=== PATIENT | male | born 1965 | race African-American/Black ===

== ENCOUNTER 2020-12-28 13:41 | Inpatient (IN) | payer BC ==
[~2020-12-28] VITALS: Ht 182.9 cm; Wt 106.1 kg
[2020-12-28] MEDS ORDERED: PIPERACILLIN/TAZ 3.375G PREMIX 50 ML IV ONE (14:30)
[2020-12-28] MEDS ORDERED: ACETAMINOPHEN 325MG TABLET PO ONE (14:30)
[2020-12-28] MEDS ORDERED: VANCOMYCIN 1 G PREMIX 200 ML IV ONE (14:30)
[2020-12-28] MEDS ORDERED: SODIUM CHLORIDE 0.9% 500 ML IV ONE (14:30)
[2020-12-28 14:50] LABS: HEMATOCRIT. 37.1 % (42.0-52.0); HEMOGLOBIN. 12.8 g/dL (14.0-18.0); MEAN CORPUSCULAR HEMOGLOBIN 28.6 pg (28.0-32.0); MEAN CORPUSCULAR VOLUME 83.1 fL (80.0-94.0); MEAN PLATELET VOLUME 10.8 fl (7.4-10.4); RED BLOOD CELL COUNT 4.47 mill/uL (4.7-6.1); RED CELL DISTRIBUTION WIDTH 15.4 % (11.6-14.6)
[2020-12-28 14:57] LABS: CHLORIDE 99 mEq/L (98-107)
[2020-12-28] MEDS ORDERED: IOHEXOL-350 100 ML BOTTLE ONE (14:58)
[2020-12-28 15:02] LABS: ETHANOL BLOOD < 10 mg/dL; INR 1.2; PROTHROMBIN TIME 12.5 sec (9.6-11.0)
[2020-12-28 15:05] LABS: LDL CHOLESTEROL 61 mg/dL (5-100)
[2020-12-28 15:07] LABS: FIBRINOGEN > 900 mg/dL (200-400)
[2020-12-28 16:26] LABS: PLATELET ESTIMATE MARKEDLY DECREASED
[2020-12-28 16:30] LABS: PLATELET 23 x1000/uL (130-400)
[2020-12-28] MEDS: SODIUM CHLORIDE 0.9% 1,000 ML IV SCH (16:30)
[2020-12-28] MEDS ORDERED: ACETAMINOPHEN 325MG TABLET PO PRN (16:30)
[2020-12-28 19:39] LABS: CLARITY URINE CLEAR (CLEAR); COLOR URINE YELLOW (YELLOW); KETONES URINE NEGATIVE (NEGATIVE); LEUKOCYTE ESTERASE URINE NEGATIVE (NEGATIVE); NITRITE URINE NEGATIVE (NEGATIVE); OCCULT BLOOD URINE 3+ (NEGATIVE); PH URINE 5.5 (4.5-8.0); PROTEIN URINE 3+ (NEGATIVE); SPECIFIC GRAVITY URINE 1.065 (1.005-1.030); UROBILINOGEN URINE 0.2 E.U./dL (0.2-1.0)
[2020-12-28 20:21] LABS: *AMPHETAMINES SCREEN URINE NEGATIVE (NEGATIVE); *BARBITURATES SCREEN URINE NEGATIVE (NEGATIVE); *BENZODIAZEPINES SCREEN URINE NEGATIVE (NEGATIVE); *COCAINE SCREEN URINE NEGATIVE (NEGATIVE)
[2020-12-28 20:22] LABS: CANNABINOID URINE SCREEN NEGATIVE (NEGATIVE); METHADONE URINE SCREEN NEGATIVE (NEGATIVE); OPIATES URINE SCREEN NEGATIVE (NEGATIVE); PHENCYCLIDINE URINE SCREEN NEGATIVE (NEGATIVE)
[2020-12-28] MEDS: ACETAMINOPHEN 325MG TABLET PO PRN (20:43)
[2020-12-28] MEDS ORDERED: PIPERACILLIN/TAZOBACTAM 3.375 G in DEXTROSE 5% WATER 50 ML IV SCH (22:00)
[2020-12-29] VITALS (8 sets, daily range): BP systolic 122–165; BP diastolic 57–85
[2020-12-29] MEDS: SODIUM CHLORIDE 0.9% 1,000 ML IV SCH ×4 (02:47→20:02)
[2020-12-29] MEDS: VANCOMYCIN 1250MG in DEXTROSE 5% WATER 250ML IV SCH ×2 (02:51→23:53)
[2020-12-29] MEDS: ACETAMINOPHEN 325MG TABLET PO PRN ×3 (02:51→19:59)
[2020-12-29] MEDS ORDERED: P20 PO (03:41)
[2020-12-29] MEDS ORDERED: CYCL50CA3 PO (03:41)
[2020-12-29] MEDS: PIPERACILLIN/TAZOBACTAM 3.375 G in DEXTROSE 5% WATER 50 ML IV SCH ×3 (04:51→21:21)
[2020-12-29] MEDS ORDERED: PREDNISONE 10MG TABLET PO SCH ×2 (07:00→19:00)
[2020-12-29 07:05] LABS: HEMATOCRIT. 40.5 % (42.0-52.0); HEMOGLOBIN. 13.6 g/dL (14.0-18.0); MEAN CORPUSCULAR HEMOGLOBIN 28.7 pg (28.0-32.0); MEAN CORPUSCULAR VOLUME 85.5 fL (80.0-94.0); MEAN PLATELET VOLUME 10.3 fl (7.4-10.4); RED BLOOD CELL COUNT 4.74 mill/uL (4.7-6.1); RED CELL DISTRIBUTION WIDTH 15.6 % (11.6-14.6)
[2020-12-29 07:28] LABS: CHLORIDE 101 mEq/L (98-107)
[2020-12-29 07:46] LABS: PHOSPHORUS 2.7 mg/dL (2.5-4.9)
[2020-12-29 08:11] LABS: PLATELET 15 x1000/uL (130-400)
[2020-12-29 08:58] LABS: NUCLEATED RED BLOOD CELLS 1 /100 WBC; PLATELET ESTIMATE MARKEDLY DECREASED
[2020-12-29 16:02] LABS: HEMATOCRIT. 38.3 % (42.0-52.0); HEMOGLOBIN. 13.1 g/dL (14.0-18.0); MEAN CORPUSCULAR VOLUME 84.6 fL (80.0-94.0); MEAN PLATELET VOLUME 10.5 fl (7.4-10.4); RED BLOOD CELL COUNT 4.53 mill/uL (4.7-6.1); RED CELL DISTRIBUTION WIDTH 15.9 % (11.6-14.6)
[2020-12-29 16:11] LABS: INR 1.1; PROTHROMBIN TIME 12.2 sec (9.6-11.0)
[2020-12-29 16:17] LABS: PLATELET 11 x1000/uL (130-400)
[2020-12-29 17:53] LABS: PLATELET ESTIMATE MARKEDLY DECREASED
[2020-12-29] MEDS ORDERED: ACETAMINOPHEN 325MG TABLET PO NR (20:30)
[2020-12-29] MEDS: PREDNISONE 5MG TABLET PO SCH (23:52)
[2020-12-29] MEDS: PREDNISONE 20MG TABLET PO SCH (23:52)
[2020-12-29] MEDS: FILGRASTIM-TBO 480 MCG/0.8 ML SYRINGE SQ SCH (23:53)
[2020-12-30] VITALS (10 sets, daily range): BP systolic 120–139; BP diastolic 71–85
[2020-12-30] MEDS: SODIUM CHLORIDE 0.9% 1,000 ML IV SCH ×4 (01:50→21:49)
[2020-12-30] MEDS: PIPERACILLIN/TAZOBACTAM 3.375 G in DEXTROSE 5% WATER 50 ML IV SCH (05:38)
[2020-12-30] MEDS: PREDNISONE 20MG TABLET PO SCH ×4 (05:38→23:02)
[2020-12-30] MEDS: PREDNISONE 5MG TABLET PO SCH ×4 (05:38→23:01)
[2020-12-30] MEDS ORDERED: PREDNISONE 10MG TABLET PO SCH (07:00)
[2020-12-30 09:43] LABS: HEMATOCRIT. 38.2 % (42.0-52.0); HEMOGLOBIN. 13.3 g/dL (14.0-18.0); MEAN CORPUSCULAR HEMOGLOBIN 29.2 pg (28.0-32.0); MEAN CORPUSCULAR VOLUME 84.1 fL (80.0-94.0); MEAN PLATELET VOLUME 11.5 fl (7.4-10.4); RED BLOOD CELL COUNT 4.54 mill/uL (4.7-6.1)
[2020-12-30 10:09] LABS: PLATELET 13 x1000/uL (130-400)
[2020-12-30 13:53] LABS: PLATELET ESTIMATE MARKEDLY DECREASED
[2020-12-30] MEDS: ACETAMINOPHEN 325MG TABLET PO PRN (14:08)
[2020-12-30] MEDS: METRONIDAZOLE 500 MG PREMIX 100 ML IV SCH ×2 (14:09→21:49)
[2020-12-30] MEDS: CEFEPIME 1,000 MG in DEXTROSE 5% WATER 50 ML IV SCH ×2 (14:09→22:56)
[2020-12-30] MEDS ORDERED: ACETAMINOPHEN 325MG TABLET PO NR (15:30)
[2020-12-30] MEDS: FILGRASTIM-TBO 480 MCG/0.8 ML SYRINGE SQ SCH (20:45)
[2020-12-30] MEDS: VANCOMYCIN 1250MG in DEXTROSE 5% WATER 250ML IV SCH (20:46)
[2020-12-30 21:52] LABS: HEMATOCRIT. 37.7 % (42.0-52.0); MEAN CORPUSCULAR HEMOGLOBIN 29.4 pg (28.0-32.0); MEAN CORPUSCULAR VOLUME 85.2 fL (80.0-94.0); MEAN PLATELET VOLUME 10.7 fl (7.4-10.4); RED BLOOD CELL COUNT 4.43 mill/uL (4.7-6.1); RED CELL DISTRIBUTION WIDTH 15.8 % (11.6-14.6)
[2020-12-30 22:04] LABS: PLATELET 16 x1000/uL (130-400)
[2020-12-30 23:05] LABS: PLATELET ESTIMATE MARKEDLY DECREASED
[2020-12-31] VITALS (9 sets, daily range): BP systolic 121–148; BP diastolic 56–79
[2020-12-31] MEDS: SODIUM CHLORIDE 0.9% 1,000 ML IV SCH ×3 (04:30→17:50)
[2020-12-31] MEDS: PREDNISONE 5MG TABLET PO SCH ×4 (05:21→23:12)
[2020-12-31] MEDS: PREDNISONE 20MG TABLET PO SCH ×4 (05:21→23:12)
[2020-12-31] MEDS: METRONIDAZOLE 500 MG PREMIX 100 ML IV SCH ×3 (05:22→21:01)
[2020-12-31 05:28] LABS: CHLORIDE 105 mEq/L (98-107)
[2020-12-31 05:41] LABS: PHOSPHORUS 1.5 mg/dL (2.5-4.9)
[2020-12-31 05:45] LABS: HEMATOCRIT. 38.6 % (42.0-52.0); HEMOGLOBIN. 13.2 g/dL (14.0-18.0); MEAN PLATELET VOLUME 10.6 fl (7.4-10.4); RED BLOOD CELL COUNT 4.54 mill/uL (4.7-6.1); RED CELL DISTRIBUTION WIDTH 15.9 % (11.6-14.6)
[2020-12-31] MEDS: CEFEPIME 1,000 MG in DEXTROSE 5% WATER 50 ML IV SCH ×3 (06:08→21:01)
[2020-12-31 09:16] LABS: INR 1.1; PROTHROMBIN TIME 11.6 sec (9.6-11.0)
[2020-12-31 10:45] LABS: FIBRINOGEN > 900 mg/dL (200-400)
[2020-12-31] MEDS ORDERED: BISACODYL 5MG TABLET PO SCH (12:45)
[2020-12-31] MEDS ORDERED: MAGNESIUM 4 G PREMIX 100 ML IV SCH (14:00)
[2020-12-31 14:12] LABS: TOTAL IRON BINDING CAPACITY 340 ug/dL (250-450)
[2020-12-31] MEDS ORDERED: SODIUM PHOS,M-BASIC-D-BASIC 15 MM in DEXT 5% WATER 250 ML IV SCH (15:00)
[2020-12-31] MEDS: ACETAMINOPHEN 325MG TABLET PO PRN (17:10)
[2020-12-31] MEDS: VANCOMYCIN 1250MG in DEXTROSE 5% WATER 250ML IV SCH (17:41)
[2020-12-31] MEDS: FILGRASTIM-TBO 480 MCG/0.8 ML SYRINGE SQ SCH (21:02)
[2021-01-01] VITALS (12 sets, daily range): BP systolic 114–152; BP diastolic 62–86
[2021-01-01] MEDS: SODIUM CHLORIDE 0.9% 1,000 ML IV SCH ×4 (00:30→20:30)
[2021-01-01] MEDS: ACETAMINOPHEN 325MG TABLET PO PRN ×2 (00:35→15:53)
[2021-01-01 01:48] LABS: PLATELET 18 x1000/uL (130-400); PLATELET ESTIMATE MARKEDLY DECREASED
[2021-01-01] MEDS: CEFEPIME 1,000 MG in DEXTROSE 5% WATER 50 ML IV SCH ×2 (05:10→13:50)
[2021-01-01] MEDS: METRONIDAZOLE 500 MG PREMIX 100 ML IV SCH ×2 (05:10→13:49)
[2021-01-01] MEDS: PREDNISONE 5MG TABLET PO SCH ×4 (05:10→23:58)
[2021-01-01] MEDS: PREDNISONE 20MG TABLET PO SCH ×4 (05:10→23:58)
[2021-01-01 06:04] LABS: FOLIC ACID (FOLATE) SERUM 18.5 ng/mL (>5.38)
[2021-01-01 06:10] LABS: HEPATITIS B SURFACE ANTIGEN NEGATIVE
[2021-01-01 11:26] LABS: HEMATOCRIT. 34.8 % (42.0-52.0); HEMOGLOBIN. 11.7 g/dL (14.0-18.0); MEAN CORPUSCULAR HEMOGLOBIN 28.9 pg (28.0-32.0); MEAN CORPUSCULAR VOLUME 86.1 fL (80.0-94.0); MEAN PLATELET VOLUME 11.1 fl (7.4-10.4); RED BLOOD CELL COUNT 4.04 mill/uL (4.7-6.1); RED CELL DISTRIBUTION WIDTH 15.9 % (11.6-14.6)
[2021-01-01 12:27] LABS: PLATELET 19 x1000/uL (130-400)
[2021-01-01] MEDS: MEROPENEM 1,000 MG in SODIUM CHLORIDE 0.9% 100 ML IV SCH (19:20)
[2021-01-01 20:56] LABS: HEMATOCRIT. 34.2 % (42.0-52.0); HEMOGLOBIN. 11.5 g/dL (14.0-18.0); MEAN CORPUSCULAR HEMOGLOBIN 29.3 pg (28.0-32.0); MEAN CORPUSCULAR VOLUME 86.7 fL (80.0-94.0); MEAN PLATELET VOLUME 12.4 fl (7.4-10.4); RED BLOOD CELL COUNT 3.94 mill/uL (4.7-6.1); RED CELL DISTRIBUTION WIDTH 16.1 % (11.6-14.6)
[2021-01-01] MEDS: FILGRASTIM-TBO 480 MCG/0.8 ML SYRINGE SQ SCH (21:26)
[2021-01-01 23:04] LABS: PLATELET ESTIMATE MARKEDLY DECREASED
[2021-01-01 23:05] LABS: PLATELET 28 x1000/uL (130-400)
[2021-01-02] VITALS (12 sets, daily range): BP systolic 117–168; BP diastolic 57–100
[2021-01-02] MEDS: MEROPENEM 1,000 MG in SODIUM CHLORIDE 0.9% 100 ML IV SCH ×3 (02:22→17:36)
[2021-01-02] MEDS: PREDNISONE 20MG TABLET PO SCH ×3 (06:03→17:36)
[2021-01-02] MEDS: PREDNISONE 5MG TABLET PO SCH ×3 (06:03→17:36)
[2021-01-02] MEDS: SODIUM CHLORIDE 0.9% 1,000 ML IV SCH ×2 (06:05→17:37)
[2021-01-02] MEDS: ACETAMINOPHEN 325MG TABLET PO PRN ×2 (08:36→14:14)
[2021-01-02] MEDS ORDERED: GADOTERATE MEGLUMINE 5 MMOL/10 ML VIAL IV ONE (09:29)
[2021-01-02 09:55] LABS: NUCLEATED RED BLOOD CELLS 1 /100 WBC; PLATELET ESTIMATE MARKEDLY DECREASED
[2021-01-02 11:57] LABS: HEMATOCRIT. 29.1 % (42.0-52.0); HEMOGLOBIN. 9.9 g/dL (14.0-18.0); MEAN CORPUSCULAR HEMOGLOBIN 29.2 pg (28.0-32.0); MEAN CORPUSCULAR VOLUME 85.7 fL (80.0-94.0); RED CELL DISTRIBUTION WIDTH 15.9 % (11.6-14.6)
[2021-01-02 11:59] LABS: CHLORIDE 110 mEq/L (98-107)
[2021-01-02 12:06] LABS: PHOSPHORUS 3.2 mg/dL (2.5-4.9)
[2021-01-02] MEDS: MICAFUNGIN 100 MG in SODIUM CHLORIDE 0.9% 100 ML IV SCH (13:32)
[2021-01-02 16:08] LABS: MEAN PLATELET VOLUME 11.8 fl (7.4-10.4)
[2021-01-02 16:09] LABS: PLATELET 34 x1000/uL (130-400)
[2021-01-02 16:15] LABS: PLATELET ESTIMATE MARKEDLY DECREASED
[2021-01-02] MEDS ORDERED: SODIUM CHLORIDE 0.9% 500 ML IV ONE ×2 (17:30→23:30)
[2021-01-02] MEDS: FILGRASTIM-TBO 480 MCG/0.8 ML SYRINGE SQ SCH (22:23)
[2021-01-02 23:53] LABS: BG BASE EXCESS 2.9 mmol/L (-2.0-2.0); BG CARBOXYHEMOGLOBIN 0.1 % (0.5-1.5); BG DEOXYHEMOGLOBIN 4.3 % (0.0-5.0); BG FRACTION INSPIRED OXYGEN 100; BG HCO3 ACT 24.2 mmol/L (22.0-26.0); BG METHEMOGLOBIN 0.4 % (0.0-1.5); BG OXYGEN SATURATION 95.7 % (92.0-98.5); BG OXYHEMOGLOBIN 95.2 % (94.0-97.0); BG PCO2 27.4 mmHg (35.0-45.0); BG PH 7.564 (7.350-7.450); BG PO2 74.2 mmHg (75.0-100.0); BG SAMPLE SITE LEFT RADIAL; BG VENT MODE MASK - NRB
[2021-01-03] VITALS (37 sets, daily range): BP systolic 116–209; BP diastolic 42–163
[2021-01-03] MEDS: PREDNISONE 5MG TABLET PO SCH ×4 (00:03→17:15)
[2021-01-03] MEDS: PREDNISONE 20MG TABLET PO SCH ×4 (00:03→17:15)
[2021-01-03] MEDS: ACETAMINOPHEN 325MG TABLET PO PRN ×3 (00:04→19:41)
[2021-01-03] MEDS: MEROPENEM 1,000 MG in SODIUM CHLORIDE 0.9% 100 ML IV SCH ×3 (02:18→17:15)
[2021-01-03] MEDS: SODIUM CHLORIDE 0.9% 1,000 ML IV SCH ×3 (02:28→21:56)
[2021-01-03 06:37] LABS: HEMOGLOBIN. 9.3 g/dL (14.0-18.0); MEAN CORPUSCULAR HEMOGLOBIN 29.3 pg (28.0-32.0); MEAN CORPUSCULAR VOLUME 85.2 fL (80.0-94.0); MEAN PLATELET VOLUME 12.4 fl (7.4-10.4); RED BLOOD CELL COUNT 3.17 mill/uL (4.7-6.1)
[2021-01-03 06:46] LABS: PLATELET 33 x1000/uL (130-400)
[2021-01-03 06:47] LABS: CHLORIDE 113 mEq/L (98-107)
[2021-01-03 06:59] LABS: PHOSPHORUS 2.6 mg/dL (2.5-4.9)
[2021-01-03 08:27] LABS: BG BASE EXCESS 1.1 mmol/L (-2.0-2.0); BG CARBOXYHEMOGLOBIN 0.3 % (0.5-1.5); BG DEOXYHEMOGLOBIN 7.6 % (0.0-5.0); BG HCO3 ACT 22.9 mmol/L (22.0-26.0); BG METHEMOGLOBIN 0.1 % (0.0-1.5); BG OXYGEN SATURATION 92.4 % (92.0-98.5); BG PCO2 27.4 mmHg (35.0-45.0); BG PH 7.539 (7.350-7.450); BG PO2 62.6 mmHg (75.0-100.0); BG SAMPLE SITE RIGHT RADIAL; BG TOTAL HEMOGLOBIN 10.7 g/dL (12.0-18.0); BG VENT MODE MASK - NRB
[2021-01-03] MEDS: IPRATROPIUM BROMIDE (0.02%) 0.5MG/2.5ML NEB HHN SCH ×4 (09:58→21:21)
[2021-01-03] MEDS ORDERED: SODIUM CHLORIDE 10% FOR INH 15ML VIAL NEB INH NR (10:00)
[2021-01-03] MEDS ORDERED: SODIUM CHLORIDE 0.9% 500 ML IV ONE (11:00)
[2021-01-03] MEDS: MICAFUNGIN 100 MG in SODIUM CHLORIDE 0.9% 100 ML IV SCH (12:58)
[2021-01-03] MEDS: HYDRALAZINE 20MG/ML VIAL IV PRN (14:42)
[2021-01-03 16:29] LABS: BG BASE EXCESS 0.9 mmol/L (-2.0-2.0); BG CARBOXYHEMOGLOBIN 0.3 % (0.5-1.5); BG DEOXYHEMOGLOBIN 3.9 % (0.0-5.0); BG HCO3 ACT 22.5 mmol/L (22.0-26.0); BG METHEMOGLOBIN 0.2 % (0.0-1.5); BG OXYGEN SATURATION 96.1 % (92.0-98.5); BG OXYHEMOGLOBIN 95.6 % (94.0-97.0); BG PCO2 26.7 mmHg (35.0-45.0); BG PH 7.544 (7.350-7.450); BG PO2 82.1 mmHg (75.0-100.0); BG SAMPLE SITE RIGHT BRACHIAL; BG TOTAL HEMOGLOBIN 11.1 g/dL (12.0-18.0); BG VENT MODE MASK - BIPAP
[2021-01-03 16:36] LABS: PLATELET ESTIMATE MARKEDLY DECREASED
[2021-01-03] MEDS: METOPROLOL TARTRATE 5MG/5ML VIAL IV PRN (17:16)
[2021-01-03] MEDS ORDERED: LORAZEPAM 2MG/ML CPJ IV NR (17:45)
[2021-01-03] MEDS: FILGRASTIM-TBO 480 MCG/0.8 ML SYRINGE SQ SCH (21:55)
[2021-01-03] MEDS: METHYLPREDNISOLONE SOD SUCC 40 MG/ML VIAL IV SCH (23:55)
[2021-01-04] VITALS (66 sets, daily range): BP systolic 93–186; BP diastolic 29–102
[2021-01-04] MEDS: IPRATROPIUM BROMIDE (0.02%) 0.5MG/2.5ML NEB HHN SCH ×6 (00:33→21:05)
[2021-01-04] MEDS: MEROPENEM 1,000 MG in SODIUM CHLORIDE 0.9% 100 ML IV SCH ×3 (02:05→19:57)
[2021-01-04] MEDS ORDERED: LORAZEPAM 2MG/ML CPJ IV SCH (02:45)
[2021-01-04] MEDS: METHYLPREDNISOLONE SOD SUCC 40 MG/ML VIAL IV SCH ×4 (05:11→23:58)
[2021-01-04 06:22] LABS: HEMATOCRIT. 26.6 % (42.0-52.0); HEMOGLOBIN. 8.9 g/dL (14.0-18.0); MEAN CORPUSCULAR HEMOGLOBIN 29.2 pg (28.0-32.0); MEAN CORPUSCULAR VOLUME 87.3 fL (80.0-94.0); MEAN PLATELET VOLUME 11.9 fl (7.4-10.4); RED BLOOD CELL COUNT 3.05 mill/uL (4.7-6.1); RED CELL DISTRIBUTION WIDTH 16.2 % (11.6-14.6)
[2021-01-04 06:31] LABS: CHLORIDE 120 mEq/L (98-107)
[2021-01-04 06:37] LABS: PLATELET 34 x1000/uL (130-400)
[2021-01-04 06:41] LABS: PHOSPHORUS 3.4 mg/dL (2.5-4.9)
[2021-01-04] MEDS ORDERED: VECURONIUM BROMIDE 10 MG/VIAL IV ONE (08:32)
[2021-01-04] MEDS ORDERED: ETOMIDATE 2MG/ML 10ML VIAL IV ONE (08:32)
[2021-01-04] MEDS: SODIUM CHLORIDE 0.45% 1,000 ML IV SCH ×2 (08:44→19:57)
[2021-01-04] MEDS: HYDRALAZINE 20MG/ML VIAL IV PRN (09:08)
[2021-01-04 10:49] LABS: BG BASE EXCESS 0.7 mmol/L (-2.0-2.0); BG CARBOXYHEMOGLOBIN 0.2 % (0.5-1.5); BG DEOXYHEMOGLOBIN 2.3 % (0.0-5.0); BG FRACTION INSPIRED OXYGEN 100; BG HCO3 ACT 23.7 mmol/L (22.0-26.0); BG METHEMOGLOBIN 0.4 % (0.0-1.5); BG OXYGEN SATURATION 97.7 % (92.0-98.5); BG OXYHEMOGLOBIN 97.1 % (94.0-97.0); BG PCO2 31.8 mmHg (35.0-45.0); BG PO2 111.6 mmHg (75.0-100.0); BG SAMPLE SITE RIGHT RADIAL; BG TOTAL HEMOGLOBIN 9.8 g/dL (12.0-18.0); BG TOTAL RESPIRATORY RATE 52 b/min; BG VENT MODE MASK - BIPAP
[2021-01-04] MEDS: MICAFUNGIN 100 MG in SODIUM CHLORIDE 0.9% 100 ML IV SCH (12:13)
[2021-01-04 12:39] LABS: NUCLEATED RED BLOOD CELLS 50 /100 WBC
[2021-01-04 12:40] LABS: PLATELET ESTIMATE MARKEDLY DECREASED
[2021-01-04] MEDS: METOPROLOL TARTRATE 5MG/5ML VIAL IV PRN (15:17)
[2021-01-04] MEDS ORDERED: VANCOMYCIN 2,000 MG in DEXT 5% WATER 500 ML IV NR (18:00)
[2021-01-04] MEDS: PROPOFOL 10MG/ML 100ML 100 ML IV PRN ×3 (18:00→23:59)
[2021-01-04 19:11] LABS: BG BASE EXCESS -0.4 mmol/L (-2.0-2.0); BG CARBOXYHEMOGLOBIN 0.2 % (0.5-1.5); BG DEOXYHEMOGLOBIN 6.8 % (0.0-5.0); BG FRACTION INSPIRED OXYGEN 100; BG HCO3 ACT 26.2 mmol/L (22.0-26.0); BG METHEMOGLOBIN 0.6 % (0.0-1.5); BG OXYGEN SATURATION 93.1 % (92.0-98.5); BG OXYHEMOGLOBIN 92.4 % (94.0-97.0); BG PCO2 52.2 mmHg (35.0-45.0); BG PH 7.318 (7.350-7.450); BG SAMPLE SITE RIGHT RADIAL; BG TOTAL HEMOGLOBIN 10.1 g/dL (12.0-18.0); BG VENT MODE VENT - AC
[2021-01-04] MEDS: FENTANYL CITRATE/PF 2,500 MCG in SODIUM CHLORIDE 0.9% 200 ML IV PRN (19:25)
[2021-01-04] MEDS: DEXT 5% IV SCH (19:57)
[2021-01-04] MEDS: WATER IV SCH (19:57)
[2021-01-04] MEDS: ACYCLOVIR IV SCH (19:57)
[2021-01-04] MEDS ORDERED: PHENYLEPHRINE 100 MG in DEXT 5% WATER 240 ML IV PRN (21:00)
[2021-01-05] VITALS (119 sets, daily range): BP systolic 87–162; BP diastolic 51–93
[2021-01-05] MEDS: IPRATROPIUM BROMIDE (0.02%) 0.5MG/2.5ML NEB HHN SCH ×7 (00:37→23:55)
[2021-01-05] MEDS: WATER IV SCH (01:30)
[2021-01-05] MEDS: MEROPENEM 1,000 MG in SODIUM CHLORIDE 0.9% 100 ML IV SCH ×3 (01:30→17:30)
[2021-01-05] MEDS: DEXT 5% IV SCH (01:30)
[2021-01-05] MEDS: ACYCLOVIR IV SCH (01:30)
[2021-01-05] MEDS: PROPOFOL 10MG/ML 100ML 100 ML IV PRN ×3 (04:11→15:49)
[2021-01-05] MEDS: METHYLPREDNISOLONE SOD SUCC 40 MG/ML VIAL IV SCH ×3 (05:00→17:31)
[2021-01-05] MEDS: SODIUM CHLORIDE 0.45% 1,000 ML IV SCH ×2 (05:00→14:03)
[2021-01-05 06:04] LABS: HEMATOCRIT. 24.4 % (42.0-52.0); HEMOGLOBIN. 8.2 g/dL (14.0-18.0); MEAN CORPUSCULAR HEMOGLOBIN 29.3 pg (28.0-32.0); MEAN CORPUSCULAR VOLUME 87.1 fL (80.0-94.0); MEAN PLATELET VOLUME 12.7 fl (7.4-10.4); PLATELET 68 x1000/uL (130-400); RED CELL DISTRIBUTION WIDTH 16.7 % (11.6-14.6)
[2021-01-05 06:18] LABS: PHOSPHORUS 5.1 mg/dL (2.5-4.9)
[2021-01-05 07:36] LABS: NUCLEATED RED BLOOD CELLS 72 /100 WBC
[2021-01-05 07:37] LABS: PLATELET ESTIMATE DECREASED
[2021-01-05] MEDS: FENTANYL CITRATE/PF 2,500 MCG in SODIUM CHLORIDE 0.9% 200 ML IV PRN (08:03)
[2021-01-05 09:41] LABS: BG BASE EXCESS -0.3 mmol/L (-2.0-2.0); BG CARBOXYHEMOGLOBIN 0.3 % (0.5-1.5); BG DEOXYHEMOGLOBIN 0.9 % (0.0-5.0); BG FRACTION INSPIRED OXYGEN 100; BG HCO3 ACT 25.2 mmol/L (22.0-26.0); BG METHEMOGLOBIN 0.5 % (0.0-1.5); BG OXYGEN SATURATION 99.1 % (92.0-98.5); BG OXYHEMOGLOBIN 98.3 % (94.0-97.0); BG PCO2 45.9 mmHg (35.0-45.0); BG PH 7.358 (7.350-7.450); BG PO2 195.4 mmHg (75.0-100.0); BG SAMPLE SITE LEFT RADIAL; BG TOTAL HEMOGLOBIN 8.3 g/dL (12.0-18.0); BG VENT MODE VENT - AC
[2021-01-05] MEDS ORDERED: SODIUM POLYSTYRENE SULFONATE 15 G/60 ML BOT PO NR (11:00)
[2021-01-05] MEDS: VANCOMYCIN 1250MG in DEXTROSE 5% WATER 250ML IV SCH (12:10)
[2021-01-05] MEDS: MICAFUNGIN 100 MG in SODIUM CHLORIDE 0.9% 100 ML IV SCH (12:11)
[2021-01-05] MEDS ORDERED: PROPOFOL 10MG/ML 100ML 100 ML IV PRN (12:45)
[2021-01-05] MEDS: ACETAMINOPHEN 325MG TABLET PO PRN (15:49)
[2021-01-05] MEDS: MIDAZOLAM HCL 100 MG in SODIUM CHLORIDE 0.9% 80 ML IV PRN (17:32)
[2021-01-05] MEDS: FILGRASTIM-TBO 480 MCG/0.8 ML SYRINGE SQ SCH (21:19)
[2021-01-06] VITALS (97 sets, daily range): BP systolic 95–143; BP diastolic 53–77
[2021-01-06] MEDS ORDERED: SODIUM CHLORIDE 0.9% 500 ML IV ONE
[2021-01-06] MEDS: METHYLPREDNISOLONE SOD SUCC 40 MG/ML VIAL IV SCH ×4 (00:12→18:33)
[2021-01-06] MEDS: SODIUM CHLORIDE 0.45% 1,000 ML IV SCH ×3 (00:16→20:54)
[2021-01-06] MEDS: IPRATROPIUM BROMIDE (0.02%) 0.5MG/2.5ML NEB HHN SCH ×5 (03:28→21:19)
[2021-01-06] MEDS: MEROPENEM 1,000 MG in SODIUM CHLORIDE 0.9% 100 ML IV SCH ×2 (05:25→18:33)
[2021-01-06] MEDS: VANCOMYCIN 1250MG in DEXTROSE 5% WATER 250ML IV SCH (05:25)
[2021-01-06 06:31] LABS: MEAN CORPUSCULAR HEMOGLOBIN 29.5 pg (28.0-32.0); MEAN CORPUSCULAR VOLUME 88.4 fL (80.0-94.0); MEAN PLATELET VOLUME 11.5 fl (7.4-10.4); PLATELET 55 x1000/uL (130-400); RED BLOOD CELL COUNT 2.32 mill/uL (4.7-6.1)
[2021-01-06 06:39] LABS: CHLORIDE 115 mEq/L (98-107)
[2021-01-06 06:50] LABS: CREATINE KINASE 282 IU/L (39-308)
[2021-01-06 06:54] LABS: HEMOGLOBIN. 6.8 g/dL (14.0-18.0)
[2021-01-06 06:55] LABS: HEMATOCRIT. 20.5 % (42.0-52.0)
[2021-01-06 07:06] LABS: PHOSPHORUS 8.1 mg/dL (2.5-4.9)
[2021-01-06] MEDS: FENTANYL CITRATE/PF 2,500 MCG in SODIUM CHLORIDE 0.9% 200 ML IV PRN (07:16)
[2021-01-06 08:01] LABS: NUCLEATED RED BLOOD CELLS 20 /100 WBC; PLATELET ESTIMATE DECREASED
[2021-01-06 08:38] LABS: BG BASE EXCESS -3.4 mmol/L (-2.0-2.0); BG CARBOXYHEMOGLOBIN 0.3 % (0.5-1.5); BG FRACTION INSPIRED OXYGEN 70; BG HCO3 ACT 23.8 mmol/L (22.0-26.0); BG METHEMOGLOBIN 0.5 % (0.0-1.5); BG OXYHEMOGLOBIN 98.2 % (94.0-97.0); BG PCO2 56.2 mmHg (35.0-45.0); BG PH 7.245 (7.350-7.450); BG PO2 199.2 mmHg (75.0-100.0); BG SAMPLE SITE RIGHT RADIAL; BG TOTAL HEMOGLOBIN 7.3 g/dL (12.0-18.0); BG VENT MODE VENT - AC
[2021-01-06] MEDS ORDERED: WATER IV SCH (09:00)
[2021-01-06] MEDS ORDERED: ACYCLOVIR IV SCH (09:00)
[2021-01-06] MEDS ORDERED: DEXT 5% IV SCH (09:00)
[2021-01-06] MEDS ORDERED: INSULIN REGULAR (HUMULIN R) 300UNITS/3ML VIAL IV SCH (10:00)
[2021-01-06] MEDS ORDERED: DEXTROSE 50% WATER 50ML SYRINGE IV SCH (10:00)
[2021-01-06] MEDS ORDERED: FUROSEMIDE 100MG/10ML VIAL IVP SCH (10:00)
[2021-01-06] MEDS ORDERED: SODIUM BICARBONATE 8.4% 1 MEQ/ML 50ML SYR IV SCH (10:00)
[2021-01-06] MEDS: MICAFUNGIN 100 MG in SODIUM CHLORIDE 0.9% 100 ML IV SCH (12:59)
[2021-01-06] MEDS: MIDAZOLAM HCL 100 MG in SODIUM CHLORIDE 0.9% 80 ML IV PRN (15:38)
[2021-01-06] MEDS ORDERED: SODIUM BICARBONATE 8.4% 1 MEQ/ML 50ML SYR IV NR ×2 (18:15→18:30)
[2021-01-06] MEDS ORDERED: SODIUM POLYSTYRENE SULFONATE 15 G/60 ML BOT PR NR (20:00)
[2021-01-06] MEDS ORDERED: LIDOCAINE HCL 1% 20ML VIAL (Pyxis) INJ ONE (20:08)
[2021-01-06 22:09] LABS: HEMATOCRIT. 22.3 % (42.0-52.0); HEMOGLOBIN. 7.3 g/dL (14.0-18.0); MEAN CORPUSCULAR HEMOGLOBIN 28.8 pg (28.0-32.0); MEAN CORPUSCULAR VOLUME 87.3 fL (80.0-94.0); MEAN PLATELET VOLUME 12.5 fl (7.4-10.4); RED BLOOD CELL COUNT 2.55 mill/uL (4.7-6.1); RED CELL DISTRIBUTION WIDTH 16.3 % (11.6-14.6)
[2021-01-06 22:15] LABS: PLATELET 31 x1000/uL (130-400)
[2021-01-06 22:34] LABS: NUCLEATED RED BLOOD CELLS 17 /100 WBC
[2021-01-06 22:36] LABS: PLATELET ESTIMATE MARKEDLY DECREASED
[2021-01-06] MEDS: FILGRASTIM-TBO 480 MCG/0.8 ML SYRINGE SQ SCH (23:09)
[2021-01-07] VITALS (81 sets, daily range): BP systolic 93–176; BP diastolic 50–89
[2021-01-07] MEDS: METHYLPREDNISOLONE SOD SUCC 40 MG/ML VIAL IV SCH ×4 (00:22→18:00)
[2021-01-07] MEDS: METOPROLOL TARTRATE 5MG/5ML VIAL IV PRN (00:22)
[2021-01-07] MEDS: FENTANYL CITRATE/PF 2,500 MCG in SODIUM CHLORIDE 0.9% 200 ML IV PRN ×2 (00:24→16:14)
[2021-01-07] MEDS: IPRATROPIUM BROMIDE (0.02%) 0.5MG/2.5ML NEB HHN SCH ×3 (00:37→09:15)
[2021-01-07 03:20] LABS: HEMATOCRIT. 22.2 % (42.0-52.0); HEMOGLOBIN. 7.4 g/dL (14.0-18.0); MEAN CORPUSCULAR HEMOGLOBIN 29.1 pg (28.0-32.0); MEAN CORPUSCULAR VOLUME 87.5 fL (80.0-94.0); MEAN PLATELET VOLUME 12.2 fl (7.4-10.4); RED BLOOD CELL COUNT 2.54 mill/uL (4.7-6.1); RED CELL DISTRIBUTION WIDTH 16.8 % (11.6-14.6)
[2021-01-07] MEDS ORDERED: METOPROLOL TARTRATE 5MG/5ML VIAL IV NR (03:30)
[2021-01-07] MEDS: ACETAMINOPHEN 325MG TABLET PO PRN ×2 (03:32→16:42)
[2021-01-07 03:36] LABS: PLATELET 27 x1000/uL (130-400)
[2021-01-07] MEDS ORDERED: AMIODARONE HCL 900 MG in DEXT 5% WATER 482 ML IV PRN (05:45)
[2021-01-07] MEDS ORDERED: AMIODARONE HCL 150 MG in DEXT 5% WATER 100 ML IV NR (06:00)
[2021-01-07 06:28] LABS: HEMATOCRIT. 21.1 % (42.0-52.0); HEMOGLOBIN. 7.2 g/dL (14.0-18.0); MEAN CORPUSCULAR HEMOGLOBIN 29.5 pg (28.0-32.0); MEAN CORPUSCULAR VOLUME 86.2 fL (80.0-94.0); MEAN PLATELET VOLUME 10.2 fl (7.4-10.4); RED BLOOD CELL COUNT 2.45 mill/uL (4.7-6.1); RED CELL DISTRIBUTION WIDTH 16.1 % (11.6-14.6)
[2021-01-07 06:31] LABS: CHLORIDE 112 mEq/L (98-107)
[2021-01-07 06:39] LABS: PHOSPHORUS 6.9 mg/dL (2.5-4.9)
[2021-01-07 06:46] LABS: PLATELET 20 x1000/uL (130-400)
[2021-01-07] MEDS: SODIUM CHLORIDE 0.45% 1,000 ML IV SCH ×2 (06:56→16:46)
[2021-01-07 07:00] LABS: NUCLEATED RED BLOOD CELLS 140 /100 WBC; PLATELET ESTIMATE MARKEDLY DECREASED
[2021-01-07] MEDS: MIDAZOLAM HCL 100 MG in SODIUM CHLORIDE 0.9% 80 ML IV PRN (07:49)
[2021-01-07] MEDS ORDERED: METOPROLOL TARTRATE 25MG TABLET PO SCH (09:00)
[2021-01-07 09:08] LABS: BG BASE EXCESS -2.9 mmol/L (-2.0-2.0); BG FRACTION INSPIRED OXYGEN 50; BG HCO3 ACT 22.7 mmol/L (22.0-26.0); BG PCO2 42.4 mmHg (35.0-45.0); BG PH 7.346 (7.350-7.450); BG PO2 80.3 mmHg (75.0-100.0); BG SAMPLE SITE LEFT RADIAL; BG TOTAL RESPIRATORY RATE 26 b/min; BG VENT MODE VENT - AC
[2021-01-07 09:19] LABS: PHOSPHORUS 6.6 mg/dL (2.5-4.9)
[2021-01-07 10:31] LABS: ATYPICAL LYMPHOCYTES 10; NUCLEATED RED BLOOD CELLS 130 /100 WBC
[2021-01-07 10:32] LABS: PLATELET ESTIMATE MARKEDLY DECREASED
[2021-01-07] MEDS: MICAFUNGIN 100 MG in SODIUM CHLORIDE 0.9% 100 ML IV SCH (13:02)
[2021-01-07] MEDS ORDERED: SODIUM POLYSTYRENE SULFONATE 15 G/60 ML BOT PO NR (13:45)
[2021-01-07] MEDS ORDERED: DIGOXIN 500MCG/2ML AMP IV NR (14:45)
[2021-01-07] MEDS ORDERED: MEROPENEM 1,000 MG in SODIUM CHLORIDE 0.9% 100 ML IV SCH (18:00)
== END 2021-01-07 18:20 | disposition short-term general hospital (02) | DRG 871 ==
LOC: ER 13:41 → EDBEDREQ 14:28 → EDBEDREQTM 14:28 → SUPCPDRO 15:52 → EDBEDREQTM 15:54 → EDBEDREQSVC 15:54 → EDBEDREQ 15:54 → MICUSO 18:15 → 6WST 21:15 → 3WST 01-01 17:56 → CVICU 01-03 11:20 → 6WST 01-05 10:45 → CVICU 01-05 11:12
PROVIDERS: ADMIT Internal Medicine; ATTEND Internal Medicine
PROC: 30233R1 Transfusion of Nonautologous Platelets into Peripheral Vein, Percutaneous Approach (ICD-10-PCS; 2020-12-29)
PROC: 4A10X4Z Monitoring of Central Nervous Electrical Activity, External Approach (ICD-10-PCS; 2020-12-30)
PROC: 5A09457 Assistance with Respiratory Ventilation, 24-96 Consecutive Hours, Continuous Positive Airway Pressure (ICD-10-PCS; 2021-01-03)
PROC: 0BH17EZ Insertion of Endotracheal Airway into Trachea, Via Natural or Artificial Opening (ICD-10-PCS; principal; 2021-01-04)
PROC: 5A1945Z Respiratory Ventilation, 24-96 Consecutive Hours (ICD-10-PCS; 2021-01-04)
PROC: 05HY33Z Insertion of Infusion Device into Upper Vein, Percutaneous Approach (ICD-10-PCS; 2021-01-05)
PROC: B54MZZA Ultrasonography of Right Upper Extremity Veins, Guidance (ICD-10-PCS; 2021-01-05)
PROC: 05HY33Z Insertion of Infusion Device into Upper Vein, Percutaneous Approach (ICD-10-PCS; 2021-01-06)
PROC: B54MZZA Ultrasonography of Right Upper Extremity Veins, Guidance (ICD-10-PCS; 2021-01-06)
PROC: 30233N1 Transfusion of Nonautologous Red Blood Cells into Peripheral Vein, Percutaneous Approach (ICD-10-PCS; 2021-01-06)
PROC: 5A1D70Z Performance of Urinary Filtration, Intermittent, Less than 6 Hours Per Day (ICD-10-PCS; 2021-01-07)
DX: A41.9 Sepsis, unspecified organism (principal); J18.9 Pneumonia, unspecified organism; G93.41 Metabolic encephalopathy; G04.90 Encephalitis and encephalomyelitis, unspecified; E43 Unspecified severe protein-calorie malnutrition; J96.01 Acute respiratory failure with hypoxia; D61.818 Other pancytopenia; E87.1 Hypo-osmolality and hyponatremia; C91.Z0 Other lymphoid leukemia not having achieved remission; E87.3 Alkalosis; D69.3 Immune thrombocytopenic purpura; E87.0 Hyperosmolality and hypernatremia; D84.9 Immunodeficiency, unspecified; N17.9 Acute kidney failure, unspecified; N18.9 Chronic kidney disease, unspecified; K75.9 Inflammatory liver disease, unspecified; Z86.73 Personal history of transient ischemic attack (TIA), and cerebral infarction without residual deficits; R65.20 Severe sepsis without septic shock; Z20.822 Contact with and (suspected) exposure to COVID-19; E87.5 Hyperkalemia; E87.6 Hypokalemia; R73.9 Hyperglycemia, unspecified; E83.42 Hypomagnesemia; T45.1X5A Adverse effect of antineoplastic and immunosuppressive drugs, initial encounter; I49.3 Ventricular premature depolarization; I49.1 Atrial premature depolarization; E83.39 Other disorders of phosphorus metabolism; I48.91 Unspecified atrial fibrillation; E66.9 Obesity, unspecified; Y92.89 Other specified places as the place of occurrence of the external cause; Z82.49 Family history of ischemic heart disease and other diseases of the circulatory system; Z68.31 Body mass index [BMI] 31.0-31.9, adult
CPT/HCPCS: 31500; 36415; 36600; 70496; 70498; 70544; 70549; 70551; 70553; 71045; 71250; 74018; 74176; 76705; 76770; 76937; 80048; 80053; 80076; 80202; 80305; 80320; 81003; 82248; 82375; 82550; 82570; 82607; 82728; 82746; 82805; 82962; 83540; 83550; 83605; 83721; 83735; 84100; 84145; 84300; 84478; 84484; 85025; 85049; 85379; 85384; 86140; 86694; 86695; 86696; 86705; 86706; 86709; 86803; 86850; 86900; 86920; 86945; 87015; 87045; 87070; 87077; 87340; 87426; 87427; 87449; 92610; 93005; 93306; 93970; 94002; 94003; 94640; 94660; 95816; 99291; A6261; A9577; C1725; C1752; J0133; J0282; J0360; J0692; J1160; J1442; J1815; J1940; J2060; J2185; J2248; J2250; J2370; J2543; J2704; J2920; J3010; J3370; J3475; J3490; J7030; J7040; J7050; J7060; J7131; J7512; P9016; P9034; Q9967; A4315; G0480; P9036